=== PATIENT | male | born 1985 | race African-American/Black ===

== ENCOUNTER 2016-11-04 10:25 | Emergency (ER) | payer SELFPAY | END 2016-11-04 13:22 | disposition home or self-care (01) | LOC: ER 10:25 | DX: S43.401A Unspecified sprain of right shoulder joint, initial encounter (principal); S83.91XA Sprain of unspecified site of right knee, initial encounter; M25.461 Effusion, right knee; S40.011A Contusion of right shoulder, initial encounter; S80.01XA Contusion of right knee, initial encounter; W03.XXXA Other fall on same level due to collision with another person, initial encounter; Y93.67 Activity, basketball; Y92.830 Public park as the place of occurrence of the external cause; F17.210 Nicotine dependence, cigarettes, uncomplicated ==